=== PATIENT | male | born 1940 | race Caucasian/White ===

== ENCOUNTER 2021-02-26 16:44 | Outpatient (CLI) | payer MEDICARE, SELFPAY ==
[2021-02-26 19:20] LABS: SARS-CoV-2 RNA PCR Positive (Negative)
== END 2021-02-26 16:45 | disposition home or self-care (01) ==
LOC: CHSLAB 16:50
PROVIDERS: PCP Physician Assistant; Visit Provider Physician Assistant
DX: U07.1 COVID-19 (principal)
CPT/HCPCS: C9803; U0003; U0005